=== PATIENT | male | born 1975 | race Two or more races ===

== ENCOUNTER 2017-11-01 20:59 | Emergency (ER) | payer SELFPAY ==
[~2017-11-01] VITALS: Ht 170.2 cm; Wt 59.0 kg
[~2017-11-01 20:59] MED LIST: CYCL10TA2 PO; NAPR500T8 PO
[2017-11-01 21:29] VITALS: BP 111/65
[2017-11-01] MEDS ORDERED: SULF1TAB23 PO (21:38)
--- NOTE | 2017-11-01 21:41 | PHYS DOC ---
Past Medical History Past Medical History: No Pertinent History Past Surgical History: No Surgical History Additional Information: 0.5 PPD Alcohol Use: Rarely Drug Use: Marijuana Adult General Chief Complaint Chief Complaint: INSECT BITE HPI HPI 32-year-old male presents for evaluation of reddened area on his right buttock for 4 days. He reports it drained earlier today. Thinks he may have gotten bit by a spider. Denies fevers or vomiting. Review of Systems Review of Systems Constitutional: Denies fever or chills [] Eyes: Denies change in visual acuity, redness, or eye pain [] HENT: Denies nasal congestion or sore throat [] Respiratory: Denies cough or shortness of breath [] Cardiovascular: No additional information not addressed in HPI [] GI: Denies abdominal pain, nausea, vomiting, bloody stools or diarrhea [] : Denies dysuria or hematuria [] Musculoskeletal: Denies back pain or joint pain [] All other systems were reviewed and found to be within normal limits, except as documented in this note. Allergies Allergies Allergies Coded Allergies Type Severity Reaction Last Updated Verified No Known Drug Allergies 01/29/16 No Physical Exam Physical Exam Constitutional: Well developed, well nourished, no acute distress, non-toxic appearance. [] Cardiovascular:Heart rate regular rhythm, no murmur [] Lungs & Thorax: Bilateral breath sounds clear to auscultation [] Skin: Right buttock 2 cm x 2 cm area of erythema with central opening that is scabbed over, no fluctuance Neurologic: Alert and oriented X 3, normal motor function, normal sensory function, no focal deficits noted. [] Psychologic: Affect normal, judgement normal, mood normal. [] Current Patient Data Vital Signs Vital Signs Date Time Temp Pulse Resp B/P (MAP) Pulse Ox O2 Delivery O2 Flow Rate FiO2 11/01/17 21:29 98.8 96 20 111/65 (80) 96 Room Air 98.8 EKG EKG [] Radiology/Procedures Radiology/Procedures [] Course & Med Decision Making Course & Med Decision Making Abscess on the right buttock appears to have spontaneously drained, will place patient on antibiotics. Recommend close follow-up with primary care doctor, strict return precautions discussed. Dragon Disclaimer Dragon Disclaimer This electronic medical record was generated, in whole or in part, using a voice recognition dictation system. Departure Departure Impression: Primary Impression: Cellulitis Disposition: HOME, SELF-CARE Condition: STABLE Referrals: NO PCP (PCP) Patient Instructions: Cellulitis, [id number] Script[facility] Sulfamethoxazole/Trimethoprim (BACTRIM 400-80 MG TABLET) 1 Each Tablet 1 TAB PO BID, #20 TAB 0 Refills Prov: RONNELL ABDUL APRN 11/01/17 Attending Signature Attending Signature I have reviewed the PA/ASSOCIATE SALES MANAGER's note and plan of care. I was available for consultation as needed during the patient's visit in the emergency department. I agree with the clinical impression, plan, and disposition. RONNELL ABDUL APRN Nov 01, 2017 21:41 KARLA NICK DO Nov 05, 2017 05:48
== END 2017-11-01 21:49 | disposition home or self-care (01) ==
LOC: ER 20:59
DX: L03.317 Cellulitis of buttock (principal); F17.200 Nicotine dependence, unspecified, uncomplicated
CPT/HCPCS: 99283